=== PATIENT | male | born 1960 | race Caucasian/White ===

== ENCOUNTER 2023-05-21 13:42 | Emergency (ER) | payer OTHER, SELFPAY ==
[2023-05-21 13:47] VITALS: BP 180/101; PULSE 85; RESP 20; TEMP 37.2; O2SAT 99; BMI 20.9
--- NOTE | 2023-05-21 15:30 | DI.CT.S_ITS ---
PROCEDURE: CT ABDOMEN PELVIS W CON INDICATIONS: ?hernia TECHNIQUE: After the administration of intravenous contrast, axial sections acquired from the lung bases to the pubic symphysis. Coronal and sagittal reformats were performed. For radiation dose reduction, the following was used: automated exposure control, adjustment of mA and/or kV according to patient size. COMPARISON: None. FINDINGS: Image quality: Excellent. Lung bases: Unremarkable. Heart: No significant findings. ABDOMEN: Liver: Unremarkable. Gallbladder: Unremarkable. Biliary ducts: Unremarkable. Pancreas: Unremarkable. Spleen: Unremarkable. Adrenal Glands: Unremarkable. Kidneys and Ureters: Unremarkable. Stomach and Bowel: Liquid colonic contents down into the rectum. Sigmoid diverticulosis without evidence of diverticulitis. No dilated loops. No wall thickening. Peritoneum: No abnormal intraperitoneal fluid. No free air. Ventral Wall: No hernias. Abdominal Nodes: No retroperitoneal or mesenteric adenopathy by size criteria. Vessels: Aorta and inferior vena cava are normal in size. PELVIS: Pelvic Organs: Unremarkable. Bladder: Unremarkable. Pelvic Nodes: No enlarged lymph nodes. Miscellaneous: No hernias are seen. Bones: Lumbar degenerative change. Moderate to severe levo scoliotic curvature centered at L1. No lytic or blastic bony lesions. No compression fractures. IMPRESSION: 1. No inguinal hernia identified. 2. Sigmoid diverticulosis without evidence of diverticulitis. 3. Liquid bowel contents suggest possible gastroenteritis. 4. Moderate to severe levo scoliotic curvature. Dictated by: Sandip Matias M.D. on 05/21/2023 at 16:33 Approved by: Sandip Matias M.D. on 05/21/2023 at 16:39
[2023-05-21 15:50] LABS: Add Manual Diff / Slide Review NO; Basophils Absolute Auto 100 /uL (0-100); Basophils Percent Auto 1.5 % (0-2); Eosinophils Absolute Auto 100 /uL (0-450); Eosinophils Percent Auto 1.9 % (2-4); Hemoglobin 15.3 g/dL (13.5-17.5); Lymphocytes Absolute Auto 2700 /uL (1100-4500); Lymphocytes Percent Auto 36.5 % (25-40); Mean Corpuscular HGB Conc 33.9 % (30-36); Mean Corpuscular Hemoglobin 31.1 PG (26-34); Mean Corpuscular Volume 91.7 fL (80-100); Monocytes Absolute Auto 500 /uL (0-900); Monocytes Percent Auto 7.2 % (3-14); Neutrophils Absolute Auto 4000 /uL (1500-7000); Neutrophils Percent Auto 52.9 % (50-75); Platelet Count 367 X10^3/uL (150-400); Red Cell Distribution Width 14.1 % (11.6-14.8); White Blood Cell Count 7.5 X10^3/uL (4.5-11.0)
[2023-05-21 16:00] LABS: Alanine Aminotransferase 26 IU/L (<50); Albumin 4.7 g/dL (3.5-5.0); Albumin Globulin Ratio 1.3 (1.0-2.8); Alkaline Phosphatase 74 U/L (38-126); Aspartate Aminotransferase 25 IU/L (17-59); BUN Creatinine Ratio 15.6 (6-22); Bilirubin Total 0.7 mg/dL (0.2-1.3); Blood Urea Nitrogen 15 mg/dL (9-20); Calcium 9.7 mg/dL (8.4-10.2); Carbon Dioxide 27 mmol/L (22-32); Chloride 101 mmol/L (98-107); Estimated Glomerular Filt Rate > 60 mL/min (>60); Globulin 3.5 g/dL (1.7-4.1); Glucose 106 mg/dL (80-110); HEMOLYSIS 17 (0-50); Lipase 101 U/L (23-300); Potassium 4.1 mmol/L (3.4-5.1); Sodium 138 mmol/L (137-145); Total Protein 8.2 g/dL (6.3-8.2)
--- NOTE | 2023-05-21 16:33 | ED.ABDPAIN ---
HPI - Abdominal Pain <Leoncio Roman PA-C - Last Filed: 05/26/23 14:32> General Chief Complaint: Abdominal Pain Stated Complaint: poss hernia Time Seen by Provider: 05/21/23 15:11 Source: patient Mode of arrival: Ambulatory History of Present Illness HPI narrative: 63-year-old male presents to the ED due to concern for a right inguinal hernia. Patient states that he has been constipated over the last 2-3 weeks, took some laxatives and strained quite a bit to have a bowel movement yesterday. This morning, patient states that he noted a lump in his right groin. Patient states that it is not painful, just uncomfortable. Patient denies fever, chills, chest pain, shortness of breath, nausea, vomiting, abdominal pain, dysuria, lightheadedness, dizziness, syncope. Denies prior abdominal surgeries. Related Data Home Medications Medication Instructions Recorded Confirmed naproxen 500 mg tablet 500 mg PO BID 04/05/18 02/12/19 Previous Rx's Medication Instructions Recorded methocarbamol 500 mg tablet 500 mg PO QID PRN muscle spasm #20 11/25/18 tabs carisoprodol 350 mg tablet 350 mg PO TID #20 tabs 02/12/19 Allergies Allergy/AdvReac Type Severity Reaction Status Date / Time tetracycline AdvReac Agitated Verified 05/21/23 13:53 island crab Allergy Unknown hives Uncoded 11/04/17 12:36 Review of Systems <Leoncio Roman PA-C - Last Filed: 05/26/23 14:32> Constitutional Constitutional: Denies chills, Denies fatigue, Denies fever(s), Denies frequent falls, Denies lethargy and Denies weakness Eyes Eyes: Denies change in vision, Denies eye discharge, Denies irritation and Denies loss of vision ENT Ears, Nose, Mouth, and Throat: Denies change in voice, Denies dizziness, Denies neck pain, Denies sore throat and Denies throat swelling Cardiovascular Cardiovascular: Denies chest pain, Denies irregular heart rhythm, Denies lightheadedness, Denies palpitations, Denies dyspnea, Denies dyspnea on exertion and Denies orthopnea Respiratory Respiratory: Denies cough, Denies dyspnea, Denies dyspnea on exertion and Denies wheezing Gastrointestinal Gastrointestinal: Denies abdominal pain, Denies change in bowel habits, Denies diarrhea, Denies nausea and Denies vomiting Comments: Right groin lump. Musculoskeletal Musculoskeletal: Denies neck pain and Denies numbness Integumentary/Breasts Skin/Breast: Denies pruritus, Denies erythema, Denies rash and Denies wounds Neurologic Neurologic: Denies behavioral changes, Denies confusion, Denies dizziness, Denies frequent falls, Denies loss of vision, Denies numbness and Denies weakness Psychiatric Psychiatric: Denies anxiety, Denies behavioral changes, Denies confusion, Denies depression, Denies homicidal ideation and Denies suicidal ideation Endocrine Endocrine: Denies fatigue, Denies flushing and Denies palpitations Hematologic/Lymphatic Hematologic/Lymphatic: Denies easy bruising Allergic/Immunologic Allergic/Immunologic: Denies urticaria, Denies throat swelling and Denies wheezing Patient History <Leoncio Roman PA-C - Last Filed: 05/26/23 14:32> Surgical History No history of previous surgery (03/23/17) Family History Grandfather Colon cancer Grandmother Breast cancer Grandfather Stomach cancer Sister Endometrial cancer Father No problems noted. Mother No problems noted. Grandmother No problems noted. Sister No problems noted. Sister No problems noted. Sister No problems noted. Brother No problems noted. Social History Smoking Status: Current every day smoker Smoking Status: Current every day smoker tobacco type: vaping alcohol intake frequency: holidays/special occasions only Substance Use Type: marijuana Exam <Leoncio Roman PA-C - Last Filed: 05/26/23 14:32> Narrative Exam Narrative: Const General:?cooperative, healthy appearing and comfortable [facility] Head:?normal to inspection Ears:?hearing grossly normal bilaterally Nose:?external nose normal Face and sinus:?normal facial exam and sinuses nontender Mouth:?oral mucosae normal Throat:?posterior oropharynx normal Eyes General:?appearance normal, both eyes and all related structures Neck Neck:?normal visual inspection and no lymphadenopathy noted Resp Effort & Inspection:?normal respiratory effort Auscultation:?clear to auscultation bilaterally Cardio Rate:?regular rate Rhythm:?regular rhythm GI Abdomen is soft, nondistended, nontender to palpation. There is a small lump that can be palpated in the right groin only when patient is upright. Benign abdomen when patient is supine. Neuro General:?patient alert, patient awake and patient oriented x3 Initial Vital Signs Initial Vital Signs: Vital Signs Temperature 98.9 F 05/21/23 13:47 Pulse Rate 85 05/21/23 13:47 Respiratory Rate 20 05/21/23 13:47 Blood Pressure 180/101 H 05/21/23 13:47 Pulse Oximetry 99 05/21/23 13:47 Oxygen Delivery Method Room Air 05/21/23 13:47 <Alondra Baum DO - Last Filed: 05/27/23 00:30> Initial Vital Signs Initial Vital Signs: Vital Signs Temperature 98.9 F 05/21/23 13:47 Pulse Rate 85 05/21/23 13:47 Respiratory Rate 20 05/21/23 13:47 Blood Pressure 180/101 H 05/21/23 13:47 Pulse Oximetry 99 05/21/23 13:47 Oxygen Delivery Method Room Air 05/21/23 13:47 Course <Leoncio Roman PA-C - Last Filed: 05/26/23 14:32> Orders Ordered: ED Orders 05/21/23 15:30 CT abdomen pelvis w con Stat 05/21/23 15:40 CBC Auto Diff [Complete Blood Count AUTO DIFF] Stat CMP [Comprehensive Metabolic Panel] Stat Lipase Stat Vital Signs Vital signs: Vital Signs - 8 hr 05/21/23 13:47 Temperature 98.9 F Pulse Rate 85 Respiratory Rate 20 Blood Pressure 180/101 H Pulse Oximetry 99 Oxygen Delivery Method Room Air <Alondra Baum DO - Last Filed: 05/27/23 00:30> Orders Ordered: ED Orders 05/21/23 15:30 CT abdomen pelvis w con Stat 05/21/23 15:40 CBC Auto Diff [Complete Blood Count AUTO DIFF] Stat CMP [Comprehensive Metabolic Panel] Stat Lipase Stat Vital Signs Vital signs: Vital Signs - 8 hr 05/21/23 13:47 Temperature 98.9 F Pulse Rate 85 Respiratory Rate 20 Blood Pressure 180/101 H Pulse Oximetry 99 Oxygen Delivery Method Room Air MDM - Abdominal Pain <NICOLE Foy Last Filed: 05/26/23 14:32> Lab Data 05/21/23 15:40 05/21/23 15:40 Labs: Lab Results 05/21/23 Range/Units 15:40 WBC 7.5 (4.5-11.0) X10^3/uL RBC 4.90 (4.5-5.9) X10^6/uL Hgb 15.3 (13.5-17.5) g/dL Hct 45.0 (41-53) % MCV 91.7 (80-100) fL MCH 31.1 (26-34) PG MCHC 33.9 (30-36) % RDW 14.1 (11.6-14.8) % Plt Count 367 (150-400) X10^3/uL Neut % (Auto) 52.9 (50-75) % Lymph % (Auto) 36.5 (25-40) % Monroe % (Auto) 7.2 (3-14) % Eos % (Auto) 1.9 L (2-4) % Baso % (Auto) 1.5 (0-2) % Neut # (Auto) 4000 (1254-2753) /uL Lymph # (Auto) 2700 (3057-2911) /uL Monroe # (Auto) 500 (0-900) /uL Eos # (Auto) 100 (0-450) /uL Baso # (Auto) 100 (0-100) /uL Sodium 138 (137-145) mmol/L Potassium 4.1 (3.4-5.1) mmol/L Chloride 101 (98-107) mmol/L Carbon Dioxide 27 (22-32) mmol/L BUN 15 (9-20) mg/dL Creatinine 0.96 (0.66-1.25) mg/dL Estimated GFR > 60 (>60) mL/min BUN/Creatinine Ratio 15.6 (6-22) Glucose 106 (80-110) mg/dL Calcium 9.7 (8.4-10.2) mg/dL Total Bilirubin 0.7 (0.2-1.3) mg/dL AST 25 (17-59) IU/L ALT 26 (<50) IU/L Alkaline Phosphatase 74 (38-126) U/L Total Protein 8.2 (6.3-8.2) g/dL Albumin 4.7 (3.5-5.0) g/dL Globulin 3.5 (1.7-4.1) g/dL Albumin/Globulin Ratio 1.3 (1.0-2.8) Lipase 101 (23-300) U/L MDM Narrative Medical decision making narrative: 63-year-old male presents to the ED due to concern for a right inguinal hernia. Concern for inguinal hernia that might be incarcerated or strangulated versus other intra-abdominal pathology versus other. Will obtain labs, CT abdomen pelvis. Labs within normal limits. CT does not show a inguinal hernia. Sigmoid diverticulosis identified without evidence of diverticulitis. Liquid bowel contents suggestive of gastroenteritis. Discussed findings with patient. Recommend follow-up with General surgery, Gastroenterology. ED return precautions discussed with patient. Patient verbalized understanding. Medical records reviewed: Yes <Alondra Baum DO - Last Filed: 05/27/23 00:30> Lab Data Labs: Lab Results 05/21/23 Range/Units 15:40 WBC 7.5 (4.5-11.0) X10^3/uL RBC 4.90 (4.5-5.9) X10^6/uL Hgb 15.3 (13.5-17.5) g/dL Hct 45.0 (41-53) % MCV 91.7 (80-100) fL MCH 31.1 (26-34) PG MCHC 33.9 (30-36) % RDW 14.1 (11.6-14.8) % Plt Count 367 (150-400) X10^3/uL Neut % (Auto) 52.9 (50-75) % Lymph % (Auto) 36.5 (25-40) % Monroe % (Auto) 7.2 (3-14) % Eos % (Auto) 1.9 L (2-4) % Baso % (Auto) 1.5 (0-2) % Neut # (Auto) 4000 (8999-5826) /uL Lymph # (Auto) 2700 (6709-3868) /uL Monroe # (Auto) 500 (0-900) /uL Eos # (Auto) 100 (0-450) /uL Baso # (Auto) 100 (0-100) /uL Sodium 138 (137-145) mmol/L Potassium 4.1 (3.4-5.1) mmol/L Chloride 101 (98-107) mmol/L Carbon Dioxide 27 (22-32) mmol/L BUN 15 (9-20) mg/dL Creatinine 0.96 (0.66-1.25) mg/dL Estimated GFR > 60 (>60) mL/min BUN/Creatinine Ratio 15.6 (6-22) Glucose 106 (80-110) mg/dL Calcium 9.7 (8.4-10.2) mg/dL Total Bilirubin 0.7 (0.2-1.3) mg/dL AST 25 (17-59) IU/L ALT 26 (<50) IU/L Alkaline Phosphatase 74 (38-126) U/L Total Protein 8.2 (6.3-8.2) g/dL Albumin 4.7 (3.5-5.0) g/dL Globulin 3.5 (1.7-4.1) g/dL Albumin/Globulin Ratio 1.3 (1.0-2.8) Lipase 101 (23-300) U/L Discharge Plan Departure Patient Disposition: Home Clinical Impression: Hernia Constipation Qualifiers: Constipation type: unspecified constipation type Qualified Code(s): K59.00 - Constipation, unspecified Instructions: DI for Groin Hernia, DI for Constipation Activity Restrictions/Additional Instructions: You were evaluated in the ED today for a right-sided groin mass. Your labs and CT were normal. There is no evidence of hernia from the CT. That being said your hernia was more palpable when you were standing up versus lying down. What is reassuring is that while you were laying down there is no sign of hernia, and therefore there is no risk of strangulation or incarceration. Please follow-up with your PCP for continued monitoring and referral to General surgery and are or gastroenterology. It will be important to have a good bowel regimen to prevent constipation, since straining can lead to worsening of your hernia. Please take MiraLax nightly along with increased water and fiber in your food. It was also noted that your blood pressure has been consistently elevated on your last several visits to the ED. it is important to follow-up with your PCP, monitor your blood pressure so it is managed appropriately. Elevated blood pressure over time with you at a very high risk for heart attacks and strokes. Return to the ED if you have worsening symptoms, persistent vomiting. Prescriptions: No Action naproxen 500 mg tablet 500 mg PO BID methocarbamol 500 mg tablet 500 mg PO QID PRN (Reason: muscle spasm) Qty: 20 0RF carisoprodol 350 mg tablet 350 mg PO TID Qty: 20 0RF Referrals: Miscellaneous,Doctor, MD [Primary Care Provider] - Stand Alone Forms: Patient Portal/API ED Sign-out <Alondra Baum DO - Last Filed: 05/27/23 00:30> Cosign ED Attending Zaira Attestation: I was immediately available in the department for consultation. Documentation has been reviewed.
[2023-05-21 17:19] VITALS: BP 190/99; PULSE 82; RESP 20; O2SAT 99
[2023-05-21 17:36] VITALS: BP 183/100; PULSE 89; RESP 18; O2SAT 99
== END 2023-05-21 17:37 | disposition home or self-care (01) ==
PROVIDERS: Emergency Provider Student in an Organized Health Care Education/Training Program
DX: K59.00 Constipation, unspecified (principal)
CPT/HCPCS: 36415; 74177; 80053; 83690; 85025; 99283; 99284

== ENCOUNTER 2023-07-15 09:53 | Day surgery (SDC) | payer OTHER, SELFPAY ==
[2023-07-09 12:35] VITALS: BMI 22.0
[2023-07-15] VITALS (8 sets, daily range): BP systolic 138–186; BP diastolic 78–107; PULSE 76–84; RESP 12–21; TEMP 36.6–36.9; O2SAT 96–99; BMI 22.0
[2023-07-15] MEDS: LACTATED RINGERS 1,000 ML 21 ML IV (10:48)
--- NOTE | 2023-07-15 11:17 | PM.PREOP ---
Pre-operative Note Interval Note History & Physical reviewed/Exam performed by Physician: Yes Changes to H&P: No
[2023-07-15] MEDS: CEFAZOLIN 2 GM/100 ML PREMIX 100 ML IV (12:00)
--- NOTE | 2023-07-15 12:14 | SUR.OPER ---
Supine on padded OR bed, head on pillow, arms padded and tucked at sides, legs uncrossed, safety belt at thigh, tape over blanket over lower legs .
[2023-07-15] MEDS: BUPIVACAINE 0.25% (PF) VIAL 30 ML INJ (12:20)
[2023-07-15] MEDS: OXYCODONE IR 5 MG TABLET PO (13:47)
--- NOTE | 2023-07-15 14:32 | PM.OP.1 ---
Operative Date/Time/Diagnoses Date of procedure: 07/15/23 Time of procedure: 14:32 Pre-op diagnosis: Right inguinal hernia Post-op diagnosis: same Procedure & Clinicians Procedure: Laparoscopic transabdominal preperitoneal repair of right inguinal hernia Same procedure as scheduled: Yes Indications: Symptomatic reducible right inguinal hernia Surgeon: Florian Roach Operative Notes Findings: Direct and moderate-sized indirect hernia Specimen(s): none sent Estimated Blood Loss (mL): 20 Procedure in detail: The patient was brought to the operating room and placed supine on the table. Bilateral sequential compression devices were applied. General anesthesia was induced and they were intubated with an endotracheal tube. A chan cath was placed in sterile fashion. They received Ancef prior to skin incision. They were prepped and draped in sterile fashion. A time out was performed to ensure the correct patient, procedure and necessary equipment within the operating room. The skin was infiltrated with 0.25% bupivicaine. A 1 cm supra umbilical midline incision was made. The fascia was sharply incised and the abdomen entered traumatically. A 10mm balloon port was placed and pneumoperitoneum was established at 15mm Hg. Inspection of the abdomen demonstrated no evidence of injury upon entry. Two 5 mm ports were then placed under direct visualization in the right and left lower quadrant lateral to the rectus muscle. Small left direct hernia and a moderate-sized right direct and indirect hernia were observed. The peritoneum 4 cm superior to the deep inguinal ring between the medial umbilical ligament and the anterior superior iliac spine was incised. The medial preperitoneal dissection was carried out into the space of Retzius bluntly, the bladder was swept inferiorly, the pubis and Lincoln's ligament were identified. Next attention was turned towards the lateral aspect of the peritoneal flap. The preperitoneal fat with the testicular vessels was carefully dissected off the inferior peritoneal flap. The cord was carefully inspected there was a moderate size indirect hernia containing omentum as well as a cord lipoma which were skeletonized off of the cord content.. The attachements to the direct hernia sac were divided and the direct defect was reduced. A large Bard 3D Max mesh was then placed into the abdomen and positioned such that the myopectineal orifice was completely covered with good overlap on all sides. The peritoneal flap was then repositioned back to its original position and a running V lock suture was used to close the peritoneum such that no bowel could herniate into the preperitoneal space. The area was examined for hemostasis. The 5mm trocars were removed under direct visualization and pneumoperitoneum was deflated through the umbilical trocar, The fascia at the umbilicus was closed with 0-Vicryl in figure of 8 fashion, skin closed with 4-0 Monocyl followed by Dermabond. The sponge and instrument count at the end of the case was correct. Both testicles were entirely within the scrotum at the end of the case. The patient emerged from anesthsia was extubated and transferred to recovery in stable condition. Complications: none Post-operative Condition: stable Disposition: same day surgery
== END 2023-07-15 15:05 | disposition home or self-care (01) ==
PROVIDERS: PCP Family Medicine; Referring Provider Surgery; Visit Provider Surgery
PROC: 0YQ54ZZ Repair Right Inguinal Region, Percutaneous Endoscopic Approach (ICD-10-PCS; CPT 49650; principal; 2023-07-15 11:15)
DX: K40.20 Bilateral inguinal hernia, without obstruction or gangrene, not specified as recurrent (principal)
CPT/HCPCS: 49650; J0360; J0690; J1100; J1170; J1885; J2250; J2405; J2704; J3010

== ENCOUNTER 2023-09-01 13:30 | Day surgery (SDC) | payer OTHER, SELFPAY ==
--- NOTE | 2023-09-01 | PATH_ITS ---
[facility] Accession Number: [id number] No. of containers..02 Tissue . 01 Material submitted: . PART A: colon - ASCENDING COLON POLYP PART B: rectum - RECTUM POLYP . 01 Diagnosis: A. Ascending Colon Polyp, Biopsy: Colonic mucosa with benign lymphoid aggregate. No dysplasia or neoplasia identified. . B. Rectal Polyp, Biopsy: Hyperplastic polyp. MRV 09/03/2023 1618 Local . 01 Electronically signed: . Lisa Naidu MD, Pathologist NPI- [id number] . 01 Gross description: . Part A: ASCENDING COLON POLYP: Received in formalin is 1 fragment(s) of plata, soft tissue measuring 0.2 x 0.1 x 0.1 cm submitted entirely in 1 cassette(s) Part B: RECTUM POLYP: Received in formalin is 1 fragment(s) of plata, soft tissue measuring 0.2 x 0.2 x 0.1 cm submitted entirely in 1 cassette(s) /AAY 09/02/2023 0438 Local . 01 Pathologist provided ICD-10: K63.89, D12.8 . 01 CPT . 977158, 601684 Specimen Comment: A courtesy copy of this report has been sent to [phone] Performed at: 01 [facility] [address] [place] [address] [address], [place], [place] [id number] MD Andrez Basurto MD Phone: [phone]
--- NOTE | 2023-09-01 13:56 | PM.HP.1 ---
History of Present Illness History of Present Illness Date Patient Seen: 09/01/23 Time Patient Seen: 14:29 Chief complaint: [facility] Narrative: 63-year-old man here for screening colonoscopy. No previous history of colonoscopy. No family history of intestinal malignancy. No abdominal concerns. [facility] Medical History Acne (~1974) Chronic back pain (~1993) Chicken pox (~1965) Marijuana use Vapes nicotine containing substance Benign essential HTN Surgical History Hx of right inguinal hernia repair No history of previous surgery (03/23/17) Family History Grandfather Colon cancer Grandmother Breast cancer Grandfather Stomach cancer Sister Endometrial cancer Father No problems noted. Mother No problems noted. Grandmother No problems noted. Sister No problems noted. Sister No problems noted. Sister No problems noted. Brother No problems noted. Social History marital status: household members: spouse lives independently: Yes occupational status: employed Smoking Status: Current every day smoker alcohol intake: current substance use type: marijuana Meds Home Medications and Allergies Home Medications Medication Instructions Recorded Confirmed Type acetaminophen 325 mg capsule 650 mg (2 x 325 mg) PO QID PRN 07/15/23 09/01/23 Rx (Tylenol) pain #60 caps ibuprofen 200 mg tablet (Advil) 400 mg PO Q6H PRN Pain, Moderate 09/01/23 09/01/23 History Allergies Allergy/AdvReac Type Severity Reaction Status Date / Time crab Allergy Intermediate Hives Verified 09/01/23 13:52 tetracycline AdvReac Agitated Verified 09/01/23 13:52 Exam Narrative Exam Narrative: General adult man alert oriented no acute distress Chest nonlabored respiration Extremities warm well perfused Assessment & Plan Assessment & Plan narrative: The patient requires colorectal screening and colonoscopy is recommended. Technical details were discussed. Risks, benefits, alternatives explained. Risks including but not limited to myocardial infarction, aspiration, bleeding, pain, missed lesion, incomplete examination, need for further radiographic studies, colonic perforation, and need for major abdominal surgery were discussed. All questions were answered to their satisfaction, and they are in agreement with this plan.
[2023-09-01 14:05] VITALS: BP 181/113; PULSE 99; RESP 18; TEMP 36.4; O2SAT 99
[2023-09-01] MEDS: LACTATED RINGERS 1,000 ML 42 ML IV (14:13)
--- NOTE | 2023-09-01 15:02 | P.OP.COLON_ITS ---
Operative Date/Time/Diagnoses Date of procedure: 09/01/23 Time of procedure: 15:02 Pre-op diagnosis: Colorectal screening Post-op diagnosis: other (Colonic polyps x2) Procedure & Clinicians Study performed: Colonoscopy and polypectomy Same procedure as scheduled: Yes Indications: Colorectal screening Surgeon: Florian Roach Procedure Notes Procedure in detail: The history and physical was performed/updated and the patient is ASA class is 2. The procedure was discussed in detail with the patient. Potential risks complications including infection, bleeding, missed diagnosis, perforation, need for surgery, and were explained. Their questions were answered and informed consent was obtained. Patient was brought to the procedure room and placed standard monitoring equipment. The patient's vital signs were monitored continuously throughout the entire procedure. Prior to starting time-out was performed. The patient was placed in the left lateral recumbent position. Procedural sedation was administered by anesthesia. Examination began with a thorough inspection of the perianal area there was no evidence of fissures, fistulae, external hemorrhoids or cutaneous malignancy. The colonoscopy scope was then placed into the anal canal and was advanced to the cecum, which was identified by the ileocecal valve, the appendiceal orifice and the confluence of the taenia. The scope was then slowly withdrawn examining colon thoroughly in all directions, irrigating it of any residual stool. The scope was retroflexed within the rectum The patient tolerated the procedure well. They will be discharged once criteria are met. The prep was of fair quality. The withdrawl time was 10 minutes. FINDINGS * Ascending colon polyp 5 mm removed with biopsy forceps * Rectal polyp 1 mm removed with biopsy forceps * Descending colon extensive diverticulosis Specimen(s): other (Ascending and rectal polyps) Impression: Colonic polyps x2 Post-procedure Recommendations: High fiber diet Plan for aftercare: Follow-up is dependent on pathology findings Disposition: same day surgery
[2023-09-01 15:15] VITALS: BP 119/76; PULSE 88; RESP 11; TEMP 36.6; O2SAT 92
[2023-09-01 15:20] VITALS: BP 110/69; PULSE 91; RESP 20; TEMP 36.6; O2SAT 95
[2023-09-01 15:25] VITALS: BP 127/78; PULSE 93; RESP 25; TEMP 36.4; O2SAT 95
[2023-09-01 15:35] VITALS: BP 119/71; PULSE 87; RESP 18; TEMP 36.4; O2SAT 96
[2023-09-01] MEDS: hydrOXYzine 50 MG/ML INJ 25 MG IM (16:03)
--- NOTE | 2023-09-01 16:08 | SUR.PHASEII ---
Patient had moderate amount of clear/brownish emesis shortly after getting into phase 2. He was medicated by anesthesia with 4 mg IV zofran. 10 min later he received 25 mg Vistaril IM. Patient has stopped vomitting. Will continue to monitor.
[2023-09-01 16:35] VITALS: BP 120/70; PULSE 82; RESP 18; TEMP 36.4; O2SAT 98
== END 2023-09-01 16:48 | disposition home or self-care (01) ==
PROVIDERS: PCP Family Medicine; Referring Provider Surgery; Visit Provider Surgery
PROC: 0DJD8ZZ Inspection of Lower Intestinal Tract, Via Natural or Artificial Opening Endoscopic (ICD-10-PCS; CPT 45378; principal; 2023-09-01 14:15)
DX: Z12.11 Encounter for screening for malignant neoplasm of colon (principal); K63.5 Polyp of colon; K62.1 Rectal polyp; K57.30 Diverticulosis of large intestine without perforation or abscess without bleeding; I10 Essential (primary) hypertension; F17.290 Nicotine dependence, other tobacco product, uncomplicated
CPT/HCPCS: 45380; J0360; J2250; J2704; J3410

== ENCOUNTER 2023-09-04 11:37 | Emergency (ER) | payer OTHER, SELFPAY ==
[2023-09-04 11:40] VITALS: BP 188/106; PULSE 73; RESP 18; TEMP 36.9; O2SAT 98; BMI 20.7
--- NOTE | 2023-09-04 11:55 | DI.RAD.S_ITS ---
PROCEDURE: XR CHEST 1V INDICATIONS: Shortness of breath TECHNIQUE: One view of the chest was acquired. COMPARISON: None. FINDINGS: Surgical changes and devices: None. Lungs and pleura: Lungs are clear. No pleural effusions or pneumothorax. Mediastinum: Mediastinal contours appear normal. Heart size is normal. Bones and chest wall: No suspicious bony lesions. Overlying soft tissues appear unremarkable. IMPRESSION: No acute pulmonary process. Dictated by: Kerrie Ramos M.D. on 09/04/2023 at 12:52 Approved by: Kerrie Ramos M.D. on 09/04/2023 at 12:56
[2023-09-04 12:18] LABS: Add Manual Diff / Slide Review NO; Basophils Absolute Auto 100 /uL (0-100); Basophils Percent Auto 0.7 % (0-2); Eosinophils Absolute Auto 200 /uL (0-450); Eosinophils Percent Auto 3.1 % (2-4); Hematocrit 45.3 % (41-53); Hemoglobin 15.2 g/dL (13.5-17.5); Lymphocytes Absolute Auto 2000 /uL (1100-4500); Lymphocytes Percent Auto 26.1 % (25-40); Mean Corpuscular HGB Conc 33.7 % (30-36); Mean Corpuscular Hemoglobin 32.1 PG (26-34); Mean Corpuscular Volume 95.3 fL (80-100); Monocytes Absolute Auto 600 /uL (0-900); Monocytes Percent Auto 7.4 % (3-14); Neutrophils Absolute Auto 4800 /uL (1500-7000); Neutrophils Percent Auto 62.7 % (50-75); Platelet Count 327 X10^3/uL (150-400); Red Blood Cell Count 4.75 X10^6/uL (4.5-5.9); White Blood Cell Count 7.6 X10^3/uL (4.5-11.0)
[2023-09-04 12:23] LABS: INR 1.1 (0.9-1.3); Prothrombin Time 12.5 SECONDS (9.4-12.5)
--- NOTE | 2023-09-04 12:27 | ED_ITS ---
HPI - SOB/Dyspnea <Jarrett Rendon PA-C - Last Filed: 09/04/23 13:48> General Chief Complaint: Shortness of Breath/Dyspnea Stated Complaint: complications to a procedure done 09/01 Time Seen by Provider: 09/04/23 11:49 Source: patient and family Mode of arrival: Family Vehicle Limitations: no limitations History of Present Illness HPI Narrative: This is a 63-year-old male presents emergency department due to a continued productive cough after his colonoscopy procedure 3 days ago. He states that he has difficulty taking deep breaths to the coughing. Denies any fevers. Reports some nausea due to coughing as well. Denies any abdominal pain, chest pain, shortness of breath. Denies any other URI symptoms. Related Data Home Medications Medication Instructions Recorded Confirmed ibuprofen 200 mg tablet (Advil) 400 mg PO Q6H PRN Pain, Moderate 09/01/23 09/01/23 Previous Rx's Medication Instructions Recorded acetaminophen 325 mg capsule 650 mg (2 x 325 mg) PO QID PRN 07/15/23 (Tylenol) pain #60 caps Allergies Allergy/AdvReac Type Severity Reaction Status Date / Time crab Allergy Intermediate Hives Verified 09/01/23 13:52 tetracycline AdvReac Agitated Verified 09/01/23 13:52 Review of Systems <Jarrett Rendon PA-C - Last Filed: 09/04/23 13:48> Review of Systems Narrative: GENERAL: Denies chills, fatigue, malaise, fever, sweats. HEENT: Denies sinus pain, ear pain, sore throat, difficulty swallowing, dizziness. RESPIRATORY: Reports cough, Denies dyspnea, , wheezing, hemoptysis, sputum. CARDIOVASCULAR: Denies chest pain, palpitations, orthopnea, edema, GASTROINTESTINAL: Denies nausea, vomiting, abdominal pain, diarrhea, constipation, melena. : Denies dysuria, frequency, incontinence, hematuria, urinary retention. MUSCULOSKELETAL: denies weakness, joint pain, or bony pain SKIN: Denies rash, skin lesions, or other NEUROLOGIC: Denies weakness, headache, numbness, change in speech, confusion, seizures, incoordination. PSYCHIATRIC: No concerning psychosocial issues. 12 point review of systems is negative except for those stated above Patient History <Jarrett Rendon PA-C - Last Filed: 09/04/23 13:48> Medical History Acne (~1974) Chronic back pain (~1993) Chicken pox (~1965) Marijuana use Vapes nicotine containing substance Benign essential HTN Surgical History Hx of right inguinal hernia repair No history of previous surgery (03/23/17) Family History Grandfather Colon cancer Grandmother Breast cancer Grandfather Stomach cancer Sister Endometrial cancer Father No problems noted. Mother No problems noted. Grandmother No problems noted. Sister No problems noted. Sister No problems noted. Sister No problems noted. Brother No problems noted. Social History marital status: household members: spouse lives independently: Yes occupational status: employed Smoking Status: Current every day smoker alcohol intake: current substance use type: marijuana Smoking Status: Current every day smoker tobacco type: vaping alcohol intake frequency: 0-2 drinks per day Substance Use Type: marijuana Exam <Jarrett eRndon PA-C - Last Filed: 09/04/23 13:48> Narrative Exam Narrative: GENERAL: Well-developed patient, in mild distress. HEAD: Atraumatic. Normocephalic. EYES: Pupils equal round and reactive. Extraocular motions intact. No scleral icterus. No injection or drainage. ENT: Nose without bleeding, purulent drainage. Throat without erythema, tonsillar hypertrophy or exudate. Airway patent. NECK: Trachea midline. Non tender EXTREMITIES: No edema or joint tenderness. NEURO: AOx3. SKIN: No rash or erythema of visible areas CARDIOVASCULAR: Regular rate and rhythm without murmurs, gallops, or rubs. RESPIRATORY: Clear to auscultation. Breath sounds equal bilaterally. No wheezes, rales, or rhonchi. GASTROINTESTINAL: Abdomen soft, non-tender, nondistended. BACK: Nontender without deformity or crepitance. No flank tenderness. Initial Vital Signs Initial Vital Signs: Vital Signs Temperature 98.4 F 09/04/23 11:40 Pulse Rate 73 09/04/23 11:40 Respiratory Rate 18 09/04/23 11:40 Blood Pressure 188/106 H 09/04/23 11:40 Pulse Oximetry 98 09/04/23 11:40 Oxygen Delivery Method Room Air 09/04/23 11:40 <Laila Cassidy MD - Last Filed: 09/04/23 15:15> Initial Vital Signs Initial Vital Signs: Vital Signs Temperature 98.4 F 09/04/23 11:40 Pulse Rate 73 09/04/23 11:40 Respiratory Rate 18 09/04/23 11:40 Blood Pressure 188/106 H 09/04/23 11:40 Pulse Oximetry 98 09/04/23 11:40 Oxygen Delivery Method Room Air 09/04/23 11:40 Course <Jarrett Rendon PA-C - Last Filed: 09/04/23 13:48> Orders Ordered: ED Orders 09/04/23 11:55 XR chest 1V Stat Measure peak expiratory flow ONCE RT Consult Eval and Treat NOW 09/04/23 12:01 EKG-12 Lead Stat 09/04/23 12:05 Complete Blood Count AUTO DIFF Stat Comprehensive Metabolic Panel Stat Lactate (Lactic Acid) Stat NT-proBNP (BNP-Adult 18+) Stat Prothrombin Time INR Stat Troponin I Stat 09/04/23 12:43 Respiratory Panel (Film Array) Stat Vital Signs Vital signs: Vital Signs - 8 hr 09/04/23 11:40 09/04/23 13:50 Temperature 98.4 F Pulse Rate 73 74 Respiratory Rate 18 16 Blood Pressure 188/106 H 155/105 H Pulse Oximetry 98 97 Oxygen Delivery Method Room Air Room Air <Laila Cassidy MD - Last Filed: 09/04/23 15:15> Orders Ordered: ED Orders 09/04/23 11:55 XR chest 1V Stat Measure peak expiratory flow ONCE RT Consult Eval and Treat NOW 09/04/23 12:01 EKG-12 Lead Stat 09/04/23 12:05 Complete Blood Count AUTO DIFF Stat Comprehensive Metabolic Panel Stat Lactate (Lactic Acid) Stat NT-proBNP (BNP-Adult 18+) Stat Prothrombin Time INR Stat Troponin I Stat 09/04/23 12:43 Respiratory Panel (Film Array) Stat Vital Signs Vital signs: Vital Signs - 8 hr 09/04/23 11:40 09/04/23 13:50 Temperature 98.4 F Pulse Rate 73 74 Respiratory Rate 18 16 Blood Pressure 188/106 H 155/105 H Pulse Oximetry 98 97 Oxygen Delivery Method Room Air Room Air MDM - SOB/Dyspnea <Jarrett Rendon PA-C - Last Filed: 09/04/23 13:48> Lab Data 09/04/23 12:05 09/04/23 12:05 Labs: Lab Results 09/04/23 09/04/23 Range/Units 12:05 12:43 WBC 7.6 (4.5-11.0) X10^3/uL RBC 4.75 (4.5-5.9) X10^6/uL Hgb 15.2 (13.5-17.5) g/dL Hct 45.3 (41-53) % MCV 95.3 (80-100) fL MCH 32.1 (26-34) PG MCHC 33.7 (30-36) % RDW 14.0 (11.6-14.8) % Plt Count 327 (150-400) X10^3/uL Neut % (Auto) 62.7 (50-75) % Lymph % (Auto) 26.1 (25-40) % [place] % (Auto) 7.4 (3-14) % Eos % (Auto) 3.1 (2-4) % Baso % (Auto) 0.7 (0-2) % Neut # (Auto) 4800 (7848-6171) /uL Lymph # (Auto) 2000 (6616-0785) /uL [place] # (Auto) 600 (0-900) /uL Eos # (Auto) 200 (0-450) /uL Baso # (Auto) 100 (0-100) /uL PT 12.5 (9.4-12.5) SECONDS INR 1.1 (0.9-1.3) Sodium 138 (137-145) mmol/L Potassium 4.1 (3.4-5.1) mmol/L Chloride 104 (98-107) mmol/L Carbon Dioxide 23 (22-32) mmol/L BUN 12 (9-20) mg/dL Creatinine 0.85 (0.66-1.25) mg/dL Estimated GFR > 60 (>60) mL/min BUN/Creatinine Ratio 14.1 (6-22) Glucose 113 H (80-110) mg/dL Lactate 0.8 (0.7-2.1) mmol/L Calcium 9.3 (8.4-10.2) mg/dL Total Bilirubin 0.9 (0.2-1.3) mg/dL AST 24 (17-59) IU/L ALT 20 (<50) IU/L Alkaline Phosphatase 63 (38-126) U/L Troponin I < 0.012 (0.01-0.034) ng/mL NT-Pro-B Natriuret Pep 102 (<125) pg/mL Total Protein 8.1 (6.3-8.2) g/dL Albumin 4.5 (3.5-5.0) g/dL Globulin 3.6 (1.7-4.1) g/dL Albumin/Globulin Ratio 1.3 (1.0-2.8) Chlamy pneumoniae PCR Not detected (Not Detect) Adenovirus (PCR) Not detected (Not Detect) B.parapertussis DNA PCR Not detected (Not Detecte) Coronavirus OC43 (PCR) Not detected (Not Detect) Coronavirus HKU1 (PCR) Not detected (Not Detect) Coronavirus 229E (PCR) Not detected (Not Detect) SARS-CoV-2 (PCR) Not detected (Not Detecte) Coronavirus NL63 (PCR) Not detected (Not Detect) Human Metapneumovir PCR Not detected (Not Detect) Influenza Type A (PCR) Not detected (Not Detect) Influenza Type B (PCR) Not detected (Not Detect) M. pneumoniae (PCR) Not detected (Not Detect) Parainfluenza 1 (PCR) Not detected (Not Detect) Parainfluenza 2 (PCR) Not detected (Not Detect) Parainfluenza 3 (PCR) Not detected (Not Detect) Parainfluenza 4 (PCR) Not detected (Not Detect) RSV (PCR) Not detected (Not Detect) Entero/Rhino (PCR) Not detected (Not Detect) Imaging Data Chest x-ray: Radiologist's Impression: [address] [address] XRay Report Signed Patient: Florencio Curran MR#: [id number] : 1960 Acct:[id number] Age/Sex: 63 / M Date of Service: 09/04/23 Loc: ED Accession Number: [id number] Procedure: XR chest 1V Ordering Provider: Laila Cassidy MD PROCEDURE: XR CHEST 1V INDICATIONS: Shortness of breath TECHNIQUE: One view of the chest was acquired. COMPARISON: None. FINDINGS: Surgical changes and devices: None. Lungs and pleura: Lungs are clear. No pleural effusions or pneumothorax. Mediastinum: Mediastinal contours appear normal. Heart size is normal. Bones and chest wall: No suspicious bony lesions. Overlying soft tissues appear unremarkable. IMPRESSION: No acute pulmonary process. Dictated by: Kerrie Ramos M.D. on 09/04/2023 at 12:52 Approved by: Kerrie Ramos M.D. on 09/04/2023 at 12:56 [facility] Narrative Medical decision making narrative: ED course: This is a 63-year-old male presents to the emergency department due to productive cough after his colonoscopy procedure roughly 3 days ago. Patient was not intubated during the procedure based on the colonoscopy nose. Lab work today was all reassuring. Chest x-ray showed no evidence of any kind of aspiration pneumonia. Respiratory panel negative. Recommended supportive care. CC: Cough Complicating co-morbidities: None Data collected from: Previous notes Medical records reviewed: Patient was last seen about 4 months ago due to constipation. Also concern for right inguinal hernia. Had been constipated for 2-3 weeks. No surgical history. The CT negative for hernia. Recommended follow up with General surgery or Gastroenterology. Patient was seen for a screening colonoscopy 3 days ago. Colonoscopy report showed an ascending colon polyp 5 mm removed with biopsy for a forceps. Rectal polyp 1 mm removed with biopsy forceps. Descending colon extensive diverticulosis. Differential considered, but not limited to: Aspiration pneumonia, complications from intubation, respiratory virus Exam documented above, pertinent findings include: Reassuring physical exam Lab Test results independently reviewed as above. Pertinent findings: All lab work unremarkable. Imaging studies independently reviewed: Chest x-ray showed no evidence of pneumonia. Scores Used: None MIPS Elements: None Consultations: None Treatments: None Re-evaluations: None Discussion: Discussed plan with the patient was comfortable with the plan Diagnosis: Cough Disposition: see below, along with detailed discharge instructions that have been reviewed with patient as well as indications for ED re-evaluation and additional outpatient follow up <Laila Cassidy MD - Last Filed: 09/04/23 15:15> Lab Data Labs: Lab Results 09/04/23 09/04/23 Range/Units 12:05 12:43 WBC 7.6 (4.5-11.0) X10^3/uL RBC 4.75 (4.5-5.9) X10^6/uL Hgb 15.2 (13.5-17.5) g/dL Hct 45.3 (41-53) % MCV 95.3 (80-100) fL MCH 32.1 (26-34) PG MCHC 33.7 (30-36) % RDW 14.0 (11.6-14.8) % Plt Count 327 (150-400) X10^3/uL Neut % (Auto) 62.7 (50-75) % Lymph % (Auto) 26.1 (25-40) % [place] % (Auto) 7.4 (3-14) % Eos % (Auto) 3.1 (2-4) % Baso % (Auto) 0.7 (0-2) % Neut # (Auto) 4800 (4699-2622) /uL Lymph # (Auto) 2000 (7095-8835) /uL [place] # (Auto) 600 (0-900) /uL Eos # (Auto) 200 (0-450) /uL Baso # (Auto) 100 (0-100) /uL PT 12.5 (9.4-12.5) SECONDS INR 1.1 (0.9-1.3) Sodium 138 (137-145) mmol/L Potassium 4.1 (3.4-5.1) mmol/L Chloride 104 (98-107) mmol/L Carbon Dioxide 23 (22-32) mmol/L BUN 12 (9-20) mg/dL Creatinine 0.85 (0.66-1.25) mg/dL Estimated GFR > 60 (>60) mL/min BUN/Creatinine Ratio 14.1 (6-22) Glucose 113 H (80-110) mg/dL Lactate 0.8 (0.7-2.1) mmol/L Calcium 9.3 (8.4-10.2) mg/dL Total Bilirubin 0.9 (0.2-1.3) mg/dL AST 24 (17-59) IU/L ALT 20 (<50) IU/L Alkaline Phosphatase 63 (38-126) U/L Troponin I < 0.012 (0.01-0.034) ng/mL NT-Pro-B Natriuret Pep 102 (<125) pg/mL Total Protein 8.1 (6.3-8.2) g/dL Albumin 4.5 (3.5-5.0) g/dL Globulin 3.6 (1.7-4.1) g/dL Albumin/Globulin Ratio 1.3 (1.0-2.8) Chlamy pneumoniae PCR Not detected (Not Detect) Adenovirus (PCR) Not detected (Not Detect) B.parapertussis DNA PCR Not detected (Not Detecte) Coronavirus OC43 (PCR) Not detected (Not Detect) Coronavirus HKU1 (PCR) Not detected (Not Detect) Coronavirus 229E (PCR) Not detected (Not Detect) SARS-CoV-2 (PCR) Not detected (Not Detecte) Coronavirus NL63 (PCR) Not detected (Not Detect) Human Metapneumovir PCR Not detected (Not Detect) Influenza Type A (PCR) Not detected (Not Detect) Influenza Type B (PCR) Not detected (Not Detect) M. pneumoniae (PCR) Not detected (Not Detect) Parainfluenza 1 (PCR) Not detected (Not Detect) Parainfluenza 2 (PCR) Not detected (Not Detect) Parainfluenza 3 (PCR) Not detected (Not Detect) Parainfluenza 4 (PCR) Not detected (Not Detect) RSV (PCR) Not detected (Not Detect) Entero/Rhino (PCR) Not detected (Not Detect) Discharge Plan Departure Patient Disposition: Home Clinical Impression: Cough Instructions: DI for Cough -- Adult Activity Restrictions/Additional Instructions: Thank you for coming to the [facility] Emergency Department today. As we discussed your labs today were very reassuring. There was no evidence of infection or electrolyte abnormality. Your chest x-ray showed no evidence of any kind of pneumonia in your lungs. Recommend [id number] cough medication to help with your symptoms. I will call you with the results of the respiratory panel as soon as they are available. I also checked the record from your colonoscopy and they did not intubate you (put a tube down your throat to help you breathe). Please return to the emergency department if you develop any chest pain, shortness of breath, or any other concerning signs or symptoms. I hope you feel better soon. Please follow up with your primary care provider within a week if your symptoms continue. If you do not have a primary care provider please contact the [facility] Resource line at [phone]. They will ask some questions about your medical history and help you get set up with a provider in the community. Prescriptions: No Action ibuprofen [Advil] 200 mg Tablet 400 mg PO Q6H PRN (Reason: Pain, Moderate) acetaminophen [Tylenol] 325 mg capsule 650 mg PO QID PRN (Reason: pain) Qty: 60 0RF Referrals: Chiquita Che DO [Primary Care Provider] - Stand Alone Forms: Patient Portal/API ED Sign-out <Laila Cassidy MD - Last Filed: 09/04/23 15:15> Cosign ED Attending Cosignature Attestation: I did not see this patient. I was available all times for consultation.
[2023-09-04 12:28] LABS: Alanine Aminotransferase 20 IU/L (<50); Albumin 4.5 g/dL (3.5-5.0); Albumin Globulin Ratio 1.3 (1.0-2.8); Alkaline Phosphatase 63 U/L (38-126); Aspartate Aminotransferase 24 IU/L (17-59); BUN Creatinine Ratio 14.1 (6-22); Bilirubin Total 0.9 mg/dL (0.2-1.3); Blood Urea Nitrogen 12 mg/dL (9-20); Calcium 9.3 mg/dL (8.4-10.2); Carbon Dioxide 23 mmol/L (22-32); Chloride 104 mmol/L (98-107); Estimated Glomerular Filt Rate > 60 mL/min (>60); Globulin 3.6 g/dL (1.7-4.1); Glucose 113 mg/dL (80-110); HEMOLYSIS < 15 (0-50); Potassium 4.1 mmol/L (3.4-5.1); Sodium 138 mmol/L (137-145); Total Protein 8.1 g/dL (6.3-8.2)
[2023-09-04 12:29] LABS: Lactate (Lactic Acid) 0.8 mmol/L (0.7-2.1)
[2023-09-04 12:40] LABS: NT-proBNP (BNP-Adult 18+) 102 pg/mL (<125); Troponin I < 0.012 ng/mL (0.01-0.034)
[2023-09-04 13:45] LABS: Adenovirus Not Detected (Not Detect); B. parapertussis Not Detected (Not Detecte); Bordetella pertussis Not Detected (Not Detect); Chlamydophila pneumoniae Not Detected (Not Detect); Coronavirus 229E Not Detected (Not Detect); Coronavirus HKU1 Not Detected (Not Detect); Coronavirus NL 63 Not Detected (Not Detect); Coronavirus OC43 Not Detected (Not Detect); Human Metapneumovirus Not Detected (Not Detect); Human Rhinovirus/Enterovirus Not Detected (Not Detect); Influenza A Not Detected (Not Detect); Influenza B Not Detected (Not Detect); Mycoplasma pneumoniae Not Detected (Not Detect); Parainfluenza Virus 1 Not Detected (Not Detect); Parainfluenza Virus 2 Not Detected (Not Detect); Parainfluenza Virus 3 Not Detected (Not Detect); Parainfluenza Virus 4 Not Detected (Not Detect); Respiratory Syncytial Virus Not Detected (Not Detect); SARS- CoV-2 Not Detected (Not Detecte)
[2023-09-04 13:50] VITALS: BP 155/105; PULSE 74; RESP 16; O2SAT 97
== END 2023-09-04 13:50 | disposition home or self-care (01) ==
PROVIDERS: Emergency Medicine; Emergency Provider Physician Assistant Medical; PCP Family Medicine
DX: R05.9 Cough, unspecified (principal); R06.02 Shortness of breath
CPT/HCPCS: 36415; 71045; 80053; 83605; 83880; 84484; 85025; 85610; 87633; 93005; 93010; 99284

== ENCOUNTER → 2024-08-26 10:07 | Outpatient (CLI) | payer OTHER, SELFPAY ==
[2024-08-26 12:07] LABS: BUN Creatinine Ratio 16.7 (6-22); Blood Urea Nitrogen 17 mg/dL (9-20); Calcium 9.7 mg/dL (8.4-10.2); Carbon Dioxide 28 mmol/L (22-32); Chloride 102 mmol/L (98-107); Cholesterol 205 mg/dL (140-199); Estimated Glomerular Filt Rate > 60 mL/min (>60); Glucose 96 mg/dL (80-110); HDL Cholesterol 56 mg/dL (40-60); HEMOLYSIS < 15 (0-50); LDL Cholesterol Calculated 134 mg/dL (<100); Potassium 5.2 mmol/L (3.4-5.1); Sodium 138 mmol/L (137-145); Triglycerides 76 mg/dL (35-150)
== END ==
LOC: LAB 10:08
PROVIDERS: PCP Family Medicine; Referring Provider Family Medicine; Visit Provider Family Medicine
DX: I10 Essential (primary) hypertension (principal); Z72.0 Tobacco use
CPT/HCPCS: 36415; 80048; 80061

== ENCOUNTER → 2025-01-12 10:39 | Outpatient (CLI) | payer OTHER, SELFPAY | LOC: LAB 10:40 | PROVIDERS: PCP Family Medicine; Visit Provider Family Medicine | DX: R30.9 Painful micturition, unspecified (principal) | CPT/HCPCS: 87086 ==

== ENCOUNTER 2025-05-04 08:26 | Emergency (ER) | payer OTHER, SELFPAY ==
[2025-05-04 08:33] VITALS: BP 155/88; PULSE 80; RESP 12; TEMP 37; O2SAT 100; BMI 21.6
--- NOTE | 2025-05-04 09:53 | ED_ITS ---
HPI - Dental/Oral General Chief complaint: Dental/Oral Stated complaint: Had upper teeth pulled, in pain, swollen face Time Seen by Provider: 05/04/25 09:44 Source: patient Mode of arrival: Ambulatory History of Present Illness HPI Narrative: Patient is a 65-year-old male history of hypertension presenting today with dental pain and swelling. He reports that 2 days ago he had all of his upper teeth pulled and had dentures or temporary dentures put in. Yesterday he was doing well he had 3 doses of amoxicillin he is on hydrocodone he used ice yesterday today woke up with swelling. He has no rash she has no difficulty breathing. He is able to swallow but getting use to new dentures in his mouth. But feels like his face is more swollen. No fever no chills. They have contacted his dentist but have not heard a response. Related Data Previous Rx's ?Medication ?Instructions ?Recorded lisinopril 20 mg tablet 20 mg PO DAILY #90 tabs 02/24 08/20 Allergies Allergy/AdvReac Type Severity Reaction Status Date / Time crab Allergy Intermediate Hives Verified 05/04/25 08:38 tetracycline AdvReac Agitated Verified 05/04/25 08:38 Patient History Medical History Acne (~1974) Chronic back pain (~1993) Chicken pox (~1965) Marijuana use Vapes nicotine containing substance Benign essential HTN Surgical History Hx of right inguinal hernia repair No history of previous surgery (03/23/17) Family History Grandfather Colon cancer Grandmother Breast cancer Grandfather Stomach cancer Sister Endometrial cancer Father No problems noted. Mother No problems noted. Grandmother No problems noted. Sister No problems noted. Sister No problems noted. Sister No problems noted. Brother No problems noted. Social History marital status: household members: spouse lives independently: Yes occupational status: employed alcohol intake: current substance use type: marijuana tobacco type: vaping alcohol intake frequency: 0-2 drinks per day Exam Initial Vital Signs Initial Vital Signs: Vital Signs Temperature 98.6 F 05/04/25 08:33 Pulse Rate 80 05/04/25 08:33 Respiratory Rate 12 05/04/25 08:33 Blood Pressure 155/88 H 05/04/25 08:33 Pulse Oximetry 100 05/04/25 08:33 Oxygen Delivery Method Room Air 05/04/25 08:33 GENERAL: Alert anxious 65-year-old male MOUTH: Did not sure removed no upper teeth present sutures present there is some clotted blood no active bleeding minimal swelling FACE: He does have upper lip swelling that is noticeable but not extreme also some mild facial swelling he is able to open both of his eyes left eye he has some very minor inferior orbital contusion. CARDIOVASCULAR: peripheral pulses in tact, cap refill <2 sec RESPIRATORY: No respiratory distress, speaks in full sentences without difficulty EXTREMITIES: Normal range of motion, no clubbing or edema. Neurovascularly intact NEUROLOGICAL: Cranial nerves II through XII grossly intact. Normal gait and speech. SKIN: Warm, dry, no petechiae, no rashes or lesions. Course Vital Signs Vital signs: Vital Signs - 8 hr 05/04/25 08:33 Temperature 98.6 F Pulse Rate 80 Respiratory Rate 12 Blood Pressure 155/88 H Pulse Oximetry 100 Oxygen Delivery Method Room Air MDM - Dental/Oral MDM Narrative Medical decision making narrative: Patient is a 65-year-old male who recently had all upper teeth pulled presenting today with swelling roughly 36 hours or less after the procedure. He has been on antibiotics since yesterday. He does have some swelling noted in his upper lip and his face but is not significant there is no airway compromise. No concern for anaphylaxis or drug allergy. No concern for sepsis he does not have a P fever there is no erythema. This appears to be postprocedure swelling. At this time I do not see need for any further blood work. Recommend outpatient follow-up with his dentist and continue care. Given strict return precautions. He is also on lisinopril but this does not seem to be angioedema, it really does seem to be postprocedural. He is speaking in managing his own secretions without any kind of difficulty. Discharge Plan Departure Patient Disposition: Home Clinical Impression: Swelling associated with dental structure Instructions: DI for Dental Pain Activity Restrictions/Additional Instructions: *You have been diagnosed with dental pain *What to do: At this time please continue all medications as prescribed follow up closely with your dentist *Continue to take medications as directed *Follow up with your primary care provider in 2-3 days or call [phone] *Return to ER if you should have increasing swelling difficulty swallowing tongue swelling rash or any new, worsening or concerning symptoms Prescriptions: No Action lisinopril 20 mg tablet 20 mg PO DAILY Qty: 90 3RF Referrals: Chiquita Che DO [Primary Care Provider, Family Practice] Stand Alone Forms: Patient Portal/API
== END 2025-05-04 10:22 | disposition home or self-care (01) ==
PROVIDERS: Emergency Provider Emergency Medicine; PCP Family Medicine
DX: R22.0 Localized swelling, mass and lump, head (principal); K08.89 Other specified disorders of teeth and supporting structures
CPT/HCPCS: 99281

== ENCOUNTER → 2025-06-23 08:22 | Outpatient (CLI) | payer OTHER, SELFPAY ==
[2025-06-23 09:00] LABS: Hematocrit 41.8 % (41-53); Hemoglobin 14.2 g/dL (13.5-17.5); Mean Corpuscular HGB Conc 34.0 % (30-36); Mean Corpuscular Hemoglobin 31.8 PG (26-34); Mean Corpuscular Volume 93.6 fL (80-100); Platelet Count 370 X10^3/uL (150-400)
[2025-06-23 09:17] LABS: Alanine Aminotransferase 16 IU/L (<50); Albumin 4.5 g/dL (3.5-5.0); Albumin Globulin Ratio 1.7 (1.0-2.8); Alkaline Phosphatase 68 U/L (38-126); Blood Urea Nitrogen 14 mg/dL (9-20); Calcium 9.5 mg/dL (8.4-10.2); Carbon Dioxide 25 mmol/L (22-32); Chloride 103 mmol/L (98-107); Cholesterol 178 mg/dL (140-199); Estimated Glomerular Filt Rate > 60 mL/min (>60); Globulin 2.7 g/dL (1.7-4.1); Glucose 98 mg/dL (70-99); HDL Cholesterol 65 mg/dL (40-60); HEMOLYSIS 24 (0-50); Potassium 4.9 mmol/L (3.4-5.1); Sodium 136 mmol/L (137-145); Total Protein 7.2 g/dL (6.3-8.2); Triglycerides 104 mg/dL (35-150)
[2025-06-23 09:24] LABS: Hemoglobin A1C% w Est Avg Glu 5.2 % (4.0-6.0)
[2025-06-23 10:03] LABS: HIV 1 & 2 Ab/Ag 4th Gen Combo NEGATIVE (NEGATIVE); Hep C Virus Ab w/Reflex Quant NEGATIVE s/c (NEGATIVE)
== END ==
LOC: LAB 08:23
PROVIDERS: PCP Family Medicine; Referring Provider Family Medicine; Visit Provider Family Medicine
DX: Z12.5 Encounter for screening for malignant neoplasm of prostate (principal); Z00.00 Encounter for general adult medical examination without abnormal findings; I10 Essential (primary) hypertension; Z72.0 Tobacco use; Z87.891 Personal history of nicotine dependence
CPT/HCPCS: 36415; 80053; 80061; 83036; 85027; 86803; 87389; G0103

== ENCOUNTER → 2025-07-19 08:49 | Outpatient (CLI) | payer OTHER, SELFPAY ==
--- NOTE | 2025-07-19 08:51 | DI.RAD.S_ITS ---
PROCEDURE: XR LUMBAR SPINE 2-3V INDICATIONS: pain TECHNIQUE: 3 views of the lumbar spine were acquired. COMPARISON: [facility], CT, CT ABDOMEN PELVIS W CON, 05/21/2023, 16:28. [facility], CR, XR HIP W PEL IF DONE BILAT 2V, 07/19/2025, 9:01. FINDINGS: Bones: 5 nonrib-bearing, lumbar type vertebral bodies are seen. There is at least moderate levoconvex thoracolumbar scoliosis. No focal AP alignment abnormality is seen. There is at least moderate disc space narrowing throughout the lumbar spine. Lower lumbar spine facet arthropathy is seen. Soft tissues: Overlying bowel gas pattern is normal. No suspicious soft tissue calcifications. IMPRESSION: Levoconvex thoracolumbar scoliosis with multiple levels of lumbar spine degenerative change. If it would be helpful for clinical management decision making, please consider a dedicated, scheduled lumbar spine MRI for further evaluation (assuming that there is no contraindication). Dictated by: Robin Russo M.D. on 07/19/2025 at 17:02 Approved by: Robin Russo M.D. on 07/19/2025 at 17:03
--- NOTE | 2025-07-19 08:51 | DI.RAD.S_ITS ---
PROCEDURE: XR HIP W PEL IF DONE BILAT 2V INDICATIONS: pain TECHNIQUE: AP pelvis with lateral view(s) of both hip(s). COMPARISON: Prior CT 05/21/2023. Correlation is also made with the accompanying lumbar spine plain films. FINDINGS: Bones: No fractures or dislocations. Pelvic ring appears intact. No suspicious bony lesions. There is moderate superior joint space narrowing seen of both hips, with associated remodeling changes with subchondral sclerosis and osteophyte formation. Age-appropriate lower lumbar spine degenerative changes are noted. Soft tissues: The visualized bowel gas pattern is normal. No suspicious soft tissue calcifications. IMPRESSION: Moderate bilateral hip degenerative change can be seen. If it would be helpful for clinical management decision making, please consider a dedicated hip MRI for further evaluation (assuming that there is no contraindication). If there is strong clinical concern for a labral abnormality, this should be performed according to the arthrogram protocol. Dictated by: Robin Russo M.D. on 07/19/2025 at 17:03 Approved by: Robin Russo M.D. on 07/19/2025 at 17:04
== END ==
PROVIDERS: PCP Family Medicine; Referring Provider Family Medicine; Visit Provider Family Medicine
DX: M47.816 Spondylosis without myelopathy or radiculopathy, lumbar region (principal); M41.9 Scoliosis, unspecified; M25.551 Pain in right hip; M25.552 Pain in left hip; M54.50 Low back pain, unspecified
CPT/HCPCS: 72100; 73521